=== PATIENT | male | born 1990 | race Caucasian/White ===

== ENCOUNTER 2019-01-27 16:29 | Emergency (ER) | payer OTHER ==
[~2019-01-27] VITALS: Ht 167.6 cm; Wt 63.5 kg
[2019-01-27 16:44] VITALS: Ht 167.6 cm; Wt 63.5 kg
[2019-01-27 19:16] VITALS: BP 120/60
== END 2019-01-27 19:16 | disposition home or self-care (01) ==
LOC: ED 16:29
DX: S82.891A Other fracture of right lower leg, initial encounter for closed fracture (principal); X50.1XXA Overexertion from prolonged static or awkward postures, initial encounter; Y93.67 Activity, basketball; Y92.320 Baseball field as the place of occurrence of the external cause; Y99.8 Other external cause status
CPT/HCPCS: Q0092